=== PATIENT | female | born 1970 | race African-American/Black ===

== ENCOUNTER 2018-04-19 21:16 | Inpatient (IN) ==
--- NOTE | 2018-04-20 06:18 | ED ---
HPI General Chief Complaint: Psychiatric Symptoms Stated Complaint: Psych STEPHANIE sandhu Time Seen by Provider: 04/19/18 21:36 Source: patient, old records reviewed and police Mode of arrival: other Limitations: no limitations History of Present Illness HPI Narrative: Patient presents to our facility under an ex parte act by a hat blocking operator due to family being concerned of patient's well-being. Floor Mechanic ordered patient be admitted for psychiatric evaluation. Paperwork that is with the patient/police shows that patient has been acting strangely recently and thinking the LUCINDA is out to get her. Family states that patient has been overly paranoid and aggressive with them over the past few months. Patient has no history of any anxiety depression or mental health issues. Patient is a healthy 47-year-old lady who has no history of drug or alcohol abuse. Upon arrival to our facility patient is coherent and denies any such things. Patient is refusing any lab work saying that she does not need it. Patient states that she does not want any type of testing or medications she is wants to be seen by a psychiatrist that she can go home. Instructed patient that a psychiatrist is not here until the morning that we need blood work to medically clear the patient. Patient is fervently denying our request to obtain blood work. complaint: Reports altered mental status Onset (ago): month(s) Duration: resolved prior to arrival History of same: No Relieving factors: none Exacerbating factors: none Context: Denies recent alcohol abuse, recent drug abuse and not taking psychiatric medications Associated psychiatric symptoms: Reports none Associated symptoms: Denies confusion, headache, shortness of breath, nausea and vomiting Treatments prior to arrival: Reports placed on mental health hold Related Data Home Medications Medication Instructions Recorded Confirmed No Known Home Medications 04/19/18 04/19/18 Allergies Allergy/AdvReac Type Severity Reaction Status Date / Time No Known Allergies Allergy Verified 04/19/18 21:47 Review of Systems ROS: all other systems reviewed are negative [facility] Medical History Medical History Patient denies medical problems (Acute) Surgical history unknown (Acute) Social History Social History Substance History: No History of Abuse Second Hand Smoke Exposure: No Smoking Status: Never smoker How Often Do You Have a Drink Containing Alcohol: Never Recent Travel in [facility] within the Last 8 Weeks: No Recent Out of Country Travel within the Last 8 Weeks: No Immunization History Tetanus Immunization: Unsure Exam HENMT Head: normocephalic and atraumatic Nose: no nasal discharge and no epistaxis Mouth: moist mucous membranes Eyes Sclera: normal sclerae Pupils: PERRL Neck Neck: trachea midline and no JVD Resp Effort & Inspection: no use of accessory muscles Auscultation: clear to auscultation bilaterally Cardio Rate: regular rate Rhythm: regular rhythm Heart Sounds: no murmurs GI Inspection: non-distended Palpation: soft, no hepatosplenomegaly and nontender Skin General: dry skin (warm) Neuro General: alert and awake Cranial Nerves: other Speech: speech normal Motor: no movement abnormalities noted Extrem General: normal to inspection, no clubbing, no cyanosis and no edema Psych Mood: congruent mood Affect: normal affect Judgment: judgment good Course Initial Documented Vital Signs Temperature 98.4 F 04/19/18 21:35 Pulse Rate 119 H 04/19/18 21:35 Respiratory Rate 14 04/19/18 21:35 Blood Pressure 151/90 H 04/19/18 21:35 Pulse Oximetry 99 04/19/18 21:35 Last Documented Vital Signs Temperature 98.9 F 04/21/18 05:52 Pulse Rate 86 04/21/18 05:52 Respiratory Rate 17 04/21/18 05:52 Blood Pressure 139/76 04/21/18 05:52 Pulse Oximetry 96 04/21/18 05:52 Medical Decision Making MDM Narrative Medical decision making narrative: Patient presents to our facility under an ex parte act by a hat blocking operator due to family being concerned of patient's well-being. Floor Mechanic ordered patient be admitted for psychiatric evaluation. Paperwork that is with the patient/police shows that patient has been acting strangely recently and thinking the LUCINDA is out to get her. Family states that patient has been overly paranoid and aggressive with them over the past few months. Patient has no history of any anxiety depression or mental health issues. Patient is a healthy 47-year-old lady who has no history of drug or alcohol abuse. Upon arrival to our facility patient is coherent and denies any such things. Patient is refusing any lab work saying that she does not need it. Patient states that she does not want any type of testing or medications she is wants to be seen by a psychiatrist that she can go home. Instructed patient that a psychiatrist is not here until the morning that we need blood work to medically clear the patient. Patient is fervently denying our request to obtain blood work. Upon arrival patient's vital signs are within normal limits Patient has a temperature of 98.4, pulse rate is 87, blood pressure is 118/62 and pulse ox is 99 on room airc Physical exam is unremarkable. Patient has no signs of intoxication or altered mental status. Patient is alert awake alert and oriented. Patient is showing no signs of psychosis or elizabeth. Patient is not trying to harm herself or staff. Patient will not be both chemically and physically restrained just to obtain lab work. Awake psychiatric evaluation in the morning Medical Screen Exam Complete: Yes Emergency Medical Condition: Yes Lab Data Result diagrams: 04/20/18 09:24 04/20/18 09:24 Lab Results 04/20/18 04/20/18 04/20/18 Range/Units 09:24 09:24 Unknown WBC 10.2 (4.0-11.0) th/mm3 RBC 4.93 (4.00-5.30) mil/mm3 Hgb 14.6 (11.6-15.3) gm/dL Hct 41.9 (35.0-46.0) % MCV 85.1 (80.0-100.0) fL MCH 29.5 (27.0-34.0) pg MCHC 34.7 (32.0-36.0) % RDW 13.1 (11.6-17.2) % Plt Count 307 (150-450) th/mm3 MPV 8.4 (7.0-11.0) fL Neut % (Auto) 73.2 H (16.0-70.0) % Lymph % (Auto) 17.7 (9.0-44.0) % [place] % (Auto) 7.4 (0.0-8.0) % Eos % (Auto) 0.7 (0.0-4.0) % Baso % (Auto) 1.0 (0.0-2.0) % Neut # (Auto) 7.5 (1.8-7.7) th/mm3 Lymph # (Auto) 1.8 (1.0-4.8) th/mm3 [place] # (Auto) 0.8 (0.0-0.9) th/mm3 Eos # (Auto) 0.1 (0.0-0.4) th/mm3 Baso # (Auto) 0.1 (0.0-0.2) th/mm3 WBC Differential . Differential Comment Auto diff final Sodium 137 (136-145) meq/L Potassium 4.3 (3.5-5.1) meq/L Chloride 106 (98-107) meq/L Carbon Dioxide 25.3 (21.0-32.0) meq/L Anion Gap 6 (5-15) meq/L BUN 12 (7-18) mg/dL Creatinine 0.98 (0.50-1.00) mg/dL Estimated GFR 73 L (>89) mL/min Random Glucose 87 (74-106) mg/dL Calcium 9.0 (8.5-10.1) mg/dL Magnesium 2.2 (1.5-2.5) mg/dL Total Bilirubin 0.5 (0.2-1.0) mg/dL AST 16 (15-37) U/L ALT 17 (10-53) U/L Alkaline Phosphatase 100 (45-117) U/L Total Protein 8.3 H (6.4-8.2) g/dL Albumin 3.9 (3.4-5.0) g/dL TSH 1.580 (0.358-3.740) uIU/mL Urine Opiates Screen Neg (Neg) Ur Barbiturates Screen Neg (Neg) Ur Amphetamines Screen Neg (Neg) U Benzodiazepines Scrn Neg (Neg) Urine Cocaine Screen Neg (Neg) U Cannabinoids Screen Neg (Neg) Serum Alcohol Less than 3 (0-5) mg/dL Discharge Plan Discharge Disposition Patient Disposition: Sign Out(ED Internal Use Only) Discharge Condition Condition: Stable Discharge Order Discharge Orders: ED Use Only Admit Order (Routine); Ordered 04/20/18 Ordered By: Rohan Austin Discharge Details Diagnosis: Acute psychosis Physicians Team ED Provider: Aquilino Salazar ED Midlevel Provider: Mari Espinosa Primary Care Provider: UNKNOWN, Attending Provider: Jeff Monsalve Status ED Status: Left Department Discharge Information Discharge Date/Time: 04/20/18 11:13
[2018-04-20] MEDS ORDERED: Bisacodyl 10 MG Supp RECTAL PRN (08:18)
[2018-04-20] MEDS ORDERED: Aluminum/Magnesium/Simethacone Susp 30 ML UDC PO PRN (08:18)
[2018-04-20] MEDS ORDERED: Haloperidol Inj 5 MG/ML Ampul IV.PUSH PRN (08:18)
[2018-04-20] MEDS ORDERED: Haloperidol 5 MG Tablet PO STA (08:25)
[2018-04-20] MEDS: Senna/Docusate Sodium 8.6/50 MG Tablet PO SCH ×2 (09:53→20:46)
[2018-04-20 09:54] LABS: Baso # (Auto) 0.1 th/mm3 (0.0-0.2); Eos # (Auto) 0.1 th/mm3 (0.0-0.4); Eos % (Auto) 0.7 % (0.0-4.0); Hematocrit 41.9 % (35.0-46.0); Hemoglobin 14.6 gm/dL (11.6-15.3); Lymph # (Auto) 1.8 th/mm3 (1.0-4.8); Lymph % (Auto) 17.7 % (9.0-44.0); Mean Corpuscular HGB Conc 34.7 % (32.0-36.0); Mean Corpuscular Hemoglobin 29.5 pg (27.0-34.0); Mean Corpuscular Volume 85.1 fL (80.0-100.0); Mean Platelet Volume 8.4 fL (7.0-11.0); Mono # (Auto) 0.8 th/mm3 (0.0-0.9); Mono % (Auto) 7.4 % (0.0-8.0); Neut # (Auto) 7.5 th/mm3 (1.8-7.7); Neut % (Auto) 73.2 % (16.0-70.0); Platelet Count 307 th/mm3 (150-450); Red Blood Count 4.93 mil/mm3 (4.00-5.30); Red Cell Distribution Width 13.1 % (11.6-17.2); White Blood Count 10.2 th/mm3 (4.0-11.0)
[2018-04-20 10:16] LABS: Alanine Aminotransferase 17 U/L (10-53); Albumin 3.9 g/dL (3.4-5.0); Anion Gap 6 meq/L (5-15); Aspartate Aminotransferase 16 U/L (15-37); Blood Urea Nitrogen 12 mg/dL (7-18); Carbon Dioxide 25.3 meq/L (21.0-32.0); Chloride 106 meq/L (98-107); Glomerular Filtration Rate 73 mL/min (>89); Glucose,Random 87 mg/dL (74-106); Magnesium 2.2 mg/dL (1.5-2.5); Potassium 4.3 meq/L (3.5-5.1); Sodium 137 meq/L (136-145)
[2018-04-20 10:26] LABS: Alkaline Phosphatase 100 U/L (45-117); Total Protein 8.3 g/dL (6.4-8.2)
--- NOTE | 2018-04-20 10:59 | P.HPPSY ---
Provisional Diagnosis Admission Date: April 20, 2018 08:20 [place] I.: Unspecified psychosis [place] II.: Deferred [place] III.: Denies medical history Competence Certification of Person's Competence To Provide Express and Informed Consent I have personally examined Flaca Munoz, a person being served at [facility] on, April 20, 2018 1042. Express and informed consent means consent voluntarily given in writing, by a competent person, after sufficient explanation and disclosure of the subject matter involved to enable the person to make a knowing and willful decision without any element of force, fraud, deceit, duress, or other form of constraint or coercion. This person is 18 years of age or older, is not now known to be incompetent to consent to treatment with a guardian advocate, and does not have a health care surrogate or proxy currently making medical treatment decisions. I have found this person to be one of the following: [] Competent to provide express and informed consent, as defined above, for voluntary admission to this facility and is competent to provide express and informed consent for treatment. He/she has the consistent capacity to make well reasoned, willful, and knowing decisions concerning his or her medical or mental health treatment. The person fully and consistently understands the purpose of the admission for examination/placement and is fully capable of personally exercising all rights assured under [place] Incompetent to provide express and informed consent to voluntary admission, and this is incompetent to provide express and informed consent to treatment. The person must be transferred to involuntary status and a petition for a guardian advocate filed with the Circuit Court. [x] Refusing to provide express and informed consent to voluntary admission but is competent to provide express and informed consent for treatment. The person must be discharged or transferred to involuntary status. Form shall be completed within 24 hours of a person's arrival at the receiving facility and filed in the clinical record of each person: 1. Admitted on a voluntary basis 2. Permitted to provide express and informed consent to his/her own treatment 3. Allowed to transfer from involuntary to voluntary status 4. Prior to permitting a person to consent to his or her own treatment after having been previously found incompetent to consent to treatment. History of Present Illness Capacity: Has capacity History of Present Illness: The patient 47 year-old -[place] woman, domiciled in [place], single , unemployed at the moment, supported by unemployment benefits, she denies previous psychiatric of anxiety and depression, denies previous psychiatric hospitalizations, denies previous suicidal attempts, she denies medical history , who presents to our facility under an ex-parte act by a mannequin maker due to family being concerned of patient's well-being. Hatchery Helper ordered patient be admitted for psychiatric evaluation. Paperwork that is with the patient/police shows that patient has been acting strangely and erratically recently and thinking the LUCINDA is out to get her. Family states that patient has been overly paranoid and aggressive with them over the past few months. Patient has no history of any anxiety depression or mental health issues. In the ER the patient has been defiant, oppositional, has been refusing any lab work saying that she does not need it and she needs to go home. Patient states that she does not want any type of testing or medications she is wants to be seen by a psychiatrist that she can go home. On my psychiatric evaluation I find a patient that is hyper alert, guarded, quite oppositional initially. The patient says that she does not want to talk to me and she wants to be discharged now. She says that is illegal to have her here and she cannot understand how cannot sane person could be arrested by the police and obligated to come to hospital. Patient says that she is not going to give her blood I do not trust you, I do not know what I going to put inside of my. I was able to de-escalate the patient verbally and make her give me her social and medical history. Then, for several minutes I have a patient informed me that is quite logical, linear, no evidence of thought process disorder. She denies to be depressed, she says that she has been sad lately, because she is under unemployment, the benefits needs soon and she is no able to find a new job. She says that she was terminated in her last job back in January 2018 when she complained of harassment by some co-employed , but she refuses to give any detail about this. She denies suicidal and homicidal ideation, she denies visual and auditory hallucinations. Is fully oriented x3, no attention deficit, no fluctuation of consciousness. When I try to confront the allegations in the exported the patient becomes quite agitated stating that she prefers not to talk about this. When I tell to the patient that I meet her blood and urine in order to do an appropriate medical clearance , then she becomes quite agitated and verbally hostile stating that she is going to call her die repairer stamping and voices some profanities. PPHx: previous psychiatric of anxiety and depression, denies previous psychiatric hospitalizations, denies previous suicidal attempts. PMHx: No medical history. Substance Hx: Denies the use of alcohol, denies illegal drugs Family Hx: She denies family psychiatric Social Hx: Patient was born and raised in [facility], domiciled along in [place], single, she has a 28-year old son, unemployed at the moment, her highest level of education is high school - Inpatient Certification I certify that the inpatient services were ordered in accordance with Medicare regulations governing the order. This includes certification that hospital inpatient services are reasonable and necessary and in the case of services not specified as inpatient-only under 42 CFR 419.22(n), that they are appropriately provided as inpatient services in accordance to with the 2-midnight benchmark under 43 CFR 412.3(e) I certify that inpatient psychiatric hospital services are medically necessary. Evaluation and treatment and/or diagnostic testing are expected to improve the patient's condition. The patient needs on a daily basis, active treatment furnished directly by or requiring the supervision of inpatient psychiatric facility personnel. Estimated Total Length of Stay (Days): 7 Plans for Post Hospital Care: Home Review of Systems All other systems reviewed negative except as stated in HPI Psychiatric: Reports paranoia PMFSH - History History Provided By: Medical Record - Medical History Medical History: Medical History (Last Reviewed 04/20/18 @ 06:15 by Mari Espinosa) Patient denies medical problems Surgical history unknown - Tobacco History Second Hand Smoke Exposure: No Smoking Status: Never smoker - Alcohol History How Often Do You Have a Drink Containing Alcohol: Never - Substance Use History Substance History: No History of Abuse - Travel History Recent Travel in the [place] Within the Last 8 Weeks: No Recent Travel Out of the Country Within the Last 8 Weeks: No - Immunization History Tetanus Immunization: Unsure Medications and Allergies Active Medications: Active Medications Al Hydrox/Mg Hydrox/Simethicone (Mag-Al Plus Susp Liq) 30 ml PO Q6H PRN PRN Reason: DYSPEPSIA Al Hydroxide/Mg Hydroxide (Milk Of Magnesia Liq) 30 ml PO Q12H PRN PRN Reason: Mild Constipation Bisacodyl (Dulcolax Supp) 10 mg RECTAL DAILY PRN PRN Reason: SEVERE CONSITIPATION Flumazenil (Romazicon Inj) 0.2 mg IV.PUSH Q1M PRN PRN Reason: OVERSEDATION Haloperidol Lactate (Haldol Inj) 1 mg IV.PUSH Q15M PRN PRN Reason: for severe agitation Lactulose (Lactulose Liq) 30 ml PO DAILY PRN PRN Reason: SEVERE CONSITIPATION Lorazepam (Ativan) 2 mg PO Q2H PRN PRN Reason: for CIWA 11-14 Lorazepam (Ativan Inj) 2 mg IV.PUSH Q2H PRN PRN Reason: for CIWA 11-14 Lorazepam (Ativan Inj) 2 mg IV.PUSH Q15M PRN PRN Reason: for CIWA > 20 Lorazepam (Ativan Inj) 1 mg IV.PUSH Q4H PRN PRN Reason: for CIWA 8-10 Lorazepam (Ativan Inj) 2 mg IV.PUSH Q1H PRN PRN Reason: for CIWA 15-20 Senna/Docusate Sodium (Geovanna-Colace) 1 tab PO BID LYNDON Last Admin: 04/20/18 09:53 Dose: Not Given Sennosides (Senokot) 17.2 mg PO Q12H PRN PRN Reason: Moderate Constipation Allergies Allergy/AdvReac Type Severity Reaction Status Date / Time No Known Allergies Allergy Verified 04/19/18 21:47 Home Medications Medication Instructions Recorded Confirmed Type No Known Home Medications 04/19/18 04/19/18 History Results - Labs CBC & Chem 7: 04/20/18 09:24 04/20/18 09:24 Labs: Laboratory Results - last 24 hr 04/20/18 04/20/18 09:24 09:24 WBC 10.2 RBC 4.93 Hgb 14.6 Hct 41.9 MCV 85.1 MCH 29.5 MCHC 34.7 RDW 13.1 Plt Count 307 MPV 8.4 Neut % (Auto) 73.2 H Lymph % (Auto) 17.7 [place] % (Auto) 7.4 Eos % (Auto) 0.7 Baso % (Auto) 1.0 Neut # (Auto) 7.5 Lymph # (Auto) 1.8 [place] # (Auto) 0.8 Eos # (Auto) 0.1 Baso # (Auto) 0.1 WBC Differential . Differential Comment Auto diff final Sodium 137 Potassium 4.3 Chloride 106 Carbon Dioxide 25.3 Anion Gap 6 BUN 12 Creatinine 0.98 Estimated GFR 73 L Random Glucose 87 Calcium 9.0 Magnesium 2.2 Total Bilirubin 0.5 AST 16 ALT 17 Alkaline Phosphatase 100 Total Protein 8.3 H Albumin 3.9 TSH 1.580 Serum Alcohol Less than 3 Exam Vital signs: Vital Signs 04/19/18 21:35 04/20/18 04:21 04/20/18 10:21 Temperature 98.4 F Pulse Rate 119 H 87 92 H Respiratory Rate 14 18 18 Blood Pressure 151/90 H 118/62 137/81 Pulse Oximetry 99 99 Intake & Output 04/19/18 04/20/18 04/20/18 18:59 06:59 18:59 Weight 72.575 kg Narrative: Does not present any tremors, no withdrawal symptoms, no stiffness, no gait disturbance, no EPS - Constitutional moderate distress - Routine HEENT Exam Head: Present: normocephalic, atraumatic Eye: Present: EOMI, PERRL ENT: Present: mucous membranes moist Mental Status Examination Appearance: Appropriate Consciousness: Alert Orientation: x4 Motor Activity: Normal gait Speech: Unremarkable Language: Adequate Fund of Knowledge: Adequate Attention and Concentration: Adequate Memory: Unremarkable Mood: Appropriate Affect: Appropriate Thought Process & Associations: Intact Thought Content: Bizarre thinking Hallucination Type: None Delusion Type: Paranoid Suicidal Ideation: No Suicidal Plan: No Suicidal Intention: No Homicidal Ideation: No Homicidal Plan: No Homicidal Intention: No Insight: Poor Judgment: Poor Assessment and Plan - Assessment (1) Unspecified psychosis Code(s): F29 - Unspecified psychosis not due to a substance or known physiological condition Status: Acute - Plan Plan: On my psychiatric evaluation today the patient is irritable, oppositional, defiant, guarded and possibly internally preoccupied and paranoid. With redirection the patient is able to be somewhat cooperative, showing that she could be lineal and logical, without prominent thought process disorder, but once under stress the patient start making accusations to the staff and is stating that we want to put something inside her blood and for this reason she has been refusing to give blood and urine. As per information in the expected, the patient has being acting erratically, stating that the LUCINDA is following her , not taking care of herself, being aggressive with her son and brother. The patient reports a psychiatric history of anxiety and depression, but no previous psychiatric hospitalizations, no previous suicide attempts, she denies that use of drugs and alcohol, but toxicology has not be done. Given the allegations in the Ram at and her obvious paranoia the patient will be admitted in psychiatry for longitudinal observation and stabilization. The patient benefits of antipsychotic medications, I will start her on Abilify 5 mg. I will try to make her to sign consent Patient needs full medical clearance We will follow-up U tox Collateral information from her brother and son is still pending Support, motivation, psych education provided Transfer to 2600 unit, will consult psychiatry for second opinion lot worker intervention for psychosocial assessment, individual and group therapies, collateral information and to coordinate safe discharge Haldol 5 mg and Ativan 2 mg IM every 8 hours as needed severe agitation and aggressive behavior Justification for Continued Inpatient Stay: Patient is acutely psychotic, needs psychiatric admission for stabilization.
--- NOTE | 2018-04-20 14:21 | P.PNPSY ---
Subjective Remarks: Patient seen for second opinion. Patient was found lying in hospital bed noted to be cooperative but irritable and guarded. Patient initially brought in under today for psychiatric evaluation with concern of paranoid delusions, persecutory delusions and recent aggressive behavior with family and others. As per chart patient had refused care in the ER was oppositional but was able to engage in interview today. Patient states that she was dragged out of her home and was on aware why police had brought her involuntary to the hospital states she had not broken any laws. Patient also mentions about having showed up in the home as well being concerned for her well-being. She mentions her sleep has been "up and down" stating that at times she gets up at night checking the doors and windows. She reports having been terminated from her work of 24 years stating that she was "arrested pushed out". She mentions having problems with her neighbors and a person at work who have been harassing her and felt that the neighbor and this person at work were colluding together against her. He will she also felt that her paper products supervisor was also "in on it". She mentions that her malorie neighbor is constantly watching her, stalking her and that the neighbor has federal ties that her calls are being intercepted and she at times will be followed to just to the bank. Patient has poor insight into her current psychotic symptoms which has affected her level of function. Patient has capacity consent for treatment but at this time due to poor insight is refusing medications despite encouragement. Patient demanding to be discharged and explained the legal process of current involuntary hospitalization. Review of Systems All other systems reviewed negative except as stated in HPI Mental Status Examination Appearance: Appropriate Consciousness: Alert Orientation: x4 Motor Activity: Normal gait Speech: Unremarkable Language: Adequate Fund of Knowledge: Adequate Attention and Concentration: Adequate Memory: Unremarkable Mood: Appropriate Affect: Appropriate Thought Process & Associations: Intact Thought Content: Bizarre thinking Hallucination Type: None Delusion Type: Paranoid Suicidal Ideation: No Suicidal Plan: No Suicidal Intention: No Homicidal Ideation: No Homicidal Plan: No Homicidal Intention: No Insight: Poor Judgment: Poor Assessment and Plan - Assessment (1) Unspecified psychosis Code(s): F29 - Unspecified psychosis not due to a substance or known physiological condition Status: Acute - Plan Plan: I have seen and examined this patient, reviewed the documentation, and I agree and concur with Dr. Watson assessment and plan. I have completed second opinion for the petition for involuntary hospitalization. Patient at this time continues with paranoid and persecutory delusions regarding her neighbor and others at work. Patient has no insight into her current psychotic symptoms and delusions which has affected her level of function and has resulted in her losing her employee as well. Patient has capacity consent for treatment and is refusing any medication at this time will likely require court order treatment of her ejection to begin treatment. Consult appreciated. Justification for Continued Inpatient Stay: At risk of further decompensation at lower level care.
[2018-04-20 16:29] LABS: Amphetamine Screen,Urine Neg (Neg); Barbiturate Screen,Urine Neg (Neg); Cannabinoid Screen,Urine Neg (Neg); Cocaine Screen,Urine Neg (Neg)
[2018-04-20 16:35] LABS: Opiate Screen,Urine Neg (Neg)
[2018-04-21 08:50] LABS: Carbon Dioxide 25.7 meq/L (21.0-32.0); Potassium 3.7 meq/L (3.5-5.1)
[2018-04-21 08:54] LABS: Chol/HDL Ratio 4.25 Ratio
[2018-04-21] MEDS: Senna/Docusate Sodium 8.6/50 MG Tablet PO SCH ×2 (09:17→20:54)
--- NOTE | 2018-04-21 12:57 | P.PNPSY ---
Subjective Remarks: Patient was seen and case discussed with nursing. Patient continues to refuse her medications. She is irritable, angry, oppositional. She is reading her ex- partner today and trying to argue her way in an illogical manner out of the sequence of events that have occurred. She would not answer me if her house was bugged or not. She says her neighbor is in the mafia and her neighbor continues to collude against her Review of Systems All other systems reviewed negative except as stated in HPI Mental Status Examination Appearance: Appropriate Consciousness: Alert Orientation: x4 Motor Activity: Normal gait Speech: Unremarkable Language: Adequate Fund of Knowledge: Adequate Attention and Concentration: Adequate Memory: Unremarkable Mood: Appropriate Affect: Appropriate Thought Process & Associations: Intact Thought Content: Bizarre thinking Hallucination Type: None Delusion Type: Paranoid Suicidal Ideation: No Suicidal Plan: No Suicidal Intention: No Homicidal Ideation: No Homicidal Plan: No Homicidal Intention: No Insight: Poor Judgment: Poor Assessment and Plan - Assessment (1) Unspecified psychosis Code(s): F29 - Unspecified psychosis not due to a substance or known physiological condition Status: Acute - Plan Plan: Continue current treatment plan Justification for Continued Inpatient Stay: Patient would decompensate in a less restrictive setting
[2018-04-22] MEDS: Senna/Docusate Sodium 8.6/50 MG Tablet PO SCH ×2 (08:38→21:13)
--- NOTE | 2018-04-22 17:16 | P.PNPSY ---
Subjective Remarks: Reviewed electronic medical records and discussed case with staff. Follow-up was conducted in the patient's room with JAZZ Cosby present. The patient states that she feels okay and is ready to go home. She does state that she "slept a lot better last night". She reports her appetite as being normal. She presents extremely well until we start discussing what brought her here. She then goes on a tangent about her neighbor. She claims that her neighbors been constantly stocking and watching her and that he caused her to lose her employment. She goes on to say that she believes this neighbor sent a woman and to supervisors to stock her at her work which resulted in her losing her job. Her family arrived for visitation while I was with this patient and I was able to speak with them at length. They report that for some time now she has been isolating, not going to family dinners or special events which previously she would have attended. Her son relates that he became extremely concerned when he arrived home at her house around 3 or 4 in the morning and she had not slept. He says that she began talking about what she had seen on the television and reported to him that she believed there were "listening devices and bugs around her house". They also state that her aunt was staying with her for period of time and she to reported that the patient had moments when she did not make sense. Her father denies any previous familial history of mental illness. They deny any previous history on the patient's part of mental illness. Her father does state that she has always been extremely independent and a go-getter. The patient declined to visit with her family members reporting that she feels betrayed, angry, and disappointed as there is nothing wrong with her. She did request that the nurse passed on her love for them however. Mental Status Examination Appearance: Appropriate Consciousness: Alert Orientation: x4 Motor Activity: Normal gait Speech: Unremarkable Language: Adequate Fund of Knowledge: Adequate Attention and Concentration: Adequate Memory: Unremarkable Mood: Appropriate Affect: Appropriate Thought Process & Associations: Intact Thought Content: Bizarre thinking Hallucination Type: None Delusion Type: Paranoid Suicidal Ideation: No Suicidal Plan: No Suicidal Intention: No Homicidal Ideation: No Homicidal Plan: No Homicidal Intention: No Insight: Poor Judgment: Poor Assessment and Plan - Assessment (1) Unspecified psychosis Code(s): F29 - Unspecified psychosis not due to a substance or known physiological condition Status: Acute - Plan Plan: Patient will be reevaluated by the attending psychiatrist. Continue with current treatment plan. Justification for Continued Inpatient Stay: Moving this patient to a less restrictive environment would likely result in decompensation.
[2018-04-23] MEDS: Senna/Docusate Sodium 8.6/50 MG Tablet PO SCH ×2 (09:53→21:09)
--- NOTE | 2018-04-23 10:27 | P.PNPSY ---
Subjective Remarks: Patient seen for follow-up, chart reviewed. Discussion with nursing staff reported that patient was noted to be looking at the window all morning, refused breakfast today. Patient was found sitting speaking with counselor, states that she did not need to be here in the hospital to be discharged. Patient states that her family came to visit and was under the impression that her father was here to pick her up. Patient states she is sleeping well, reports no difficulty or appetite but this did not have an appetite this morning. Patient questioning why she continues to be here in the hospital not discharge him explained about concerns regarding her behavior as per family members she states that they do not know her well and that she is able to care for herself and does not need any mental health help. Went to spoken about her recent statements which she mentioned regarding her belief that her neighbor and coworkers were conspiring against her as well as her belief of having hypervigilance in her home she minimizes the paranoia stating that it is something that any person has a right to do. Patient appears to have a response to justify her recent actions. Patient continues to refuse treatment and has no insight into her recent paranoid delusions. Review of Systems All other systems reviewed negative except as stated in HPI Mental Status Examination Appearance: Appropriate Consciousness: Alert Orientation: x4 Motor Activity: Normal gait Speech: Unremarkable Language: Adequate Fund of Knowledge: Adequate Attention and Concentration: Adequate Memory: Unremarkable Mood: Appropriate Affect: Appropriate Thought Process & Associations: Intact Thought Content: Bizarre thinking, Delusional Hallucination Type: None Delusion Type: Paranoid Suicidal Ideation: No Suicidal Plan: No Suicidal Intention: No Homicidal Ideation: No Homicidal Plan: No Homicidal Intention: No Insight: Poor Judgment: Poor Assessment and Plan - Assessment (1) Unspecified psychosis Code(s): F29 - Unspecified psychosis not due to a substance or known physiological condition Status: Acute - Plan Plan: Patient this time continues with paranoid delusions regarding neighbor and others conspiring cancer. Patient appears to minimize her recent actions regarding her paranoid behavior and making justifications for her actions. Family members have endorsed continued concern of her recent paranoid behavior. Patient was explained process of involuntary hospitalization that she will present to mental health court on for attention and possibly treatment over objection if necessary. Patient continues with irritability and discharge focus. Justification for Continued Inpatient Stay: At risk of further decompensation at lower level care.
[2018-04-24] MEDS: Senna/Docusate Sodium 8.6/50 MG Tablet PO SCH ×2 (09:27→21:03)
--- NOTE | 2018-04-24 15:14 | P.PNPSY ---
Subjective Chief Complaint: Follow-up evaluation for paranoid delusions Remarks: Patient seen for follow-up, chart reviewed, patient discussed with nursing staff ; we reviewed the patient's mood, thoughts, and behaviors from overnight and this morning. Nursing reports that the patient is denying paranoid delusions today but remains guarded, hypervigilant, and not satisfied with explanations to her repeated questions about her care. Patient was during recreational therapy. Her behavior was appropriate. Patient was cooperative with interview but maintained guardedness and her affect appeared irritable. She denied that her paranoia was unfounded. She explained that it was a "exaggerated issue that started with a neighbor of mine 1 year ago People have been exaggerating it." Patient reports she feels safe to go home. Patient denies significant anxiety or depression and denies auditory or visual hallucinations and insists "I do not need any psychiatric treatment". Review of Systems Ears, Nose, Mouth, and Throat: Reports other (Chapped lips) Mental Status Examination Appearance: Appropriate Consciousness: Alert Orientation: x4 Motor Activity: Normal gait Speech: Unremarkable Language: Adequate Fund of Knowledge: Adequate Attention and Concentration: Adequate Memory: Unremarkable Mood: Irritable Affect: Irritable Thought Process & Associations: Intact Thought Content: Appropriate Hallucination Type: None Delusion Type: None, Paranoid Suicidal Ideation: No Suicidal Plan: No Suicidal Intention: No Homicidal Ideation: No Homicidal Plan: No Homicidal Intention: No Insight: Poor Judgment: Impulsive Assessment and Plan - Assessment (1) Unspecified psychosis Code(s): F29 - Unspecified psychosis not due to a substance or known physiological condition Status: Acute - Plan Plan: 04/23/2018: Patient this time continues with paranoid delusions regarding neighbor and others conspiring cancer. Patient appears to minimize her recent actions regarding her paranoid behavior and making justifications for her actions. Family members have endorsed continued concern of her recent paranoid behavior. Patient was explained process of involuntary hospitalization that she will present to mental health court on for attention and possibly treatment over objection if necessary. Patient continues with irritability and discharge focus. 04/24/2018: Fair response to treatment; the patient has been denying her paranoid delusions as of today. She remains guarded and somewhat seclusive from the milieu but otherwise appropriate with no signs of aggression towards self or others. She continues to decline offer for treatment of her paranoia and wants to be discharged home. Continue inpatient observation and stabilization of paranoid delusions. Anticipate [facility] act court for this . Justification for Continued Inpatient Stay: Patient remains an elevated risk for self-harm by self neglect and risk to others if she would act out on her paranoia and therefore will require further inpatient stabilization and preparation of a safe discharge plan. Moving patient to a less restrictive environment at this time may result in decompensation.
[2018-04-25] MEDS: Senna/Docusate Sodium 8.6/50 MG Tablet PO SCH ×2 (08:32→21:00)
--- NOTE | 2018-04-25 21:00 | P.PNPSY ---
Subjective Chief Complaint: Follow-up evaluation for paranoid delusions Remarks: Patient seen for follow-up, chart reviewed. Discussion with nursing staff reported that patient with no behavioral disturbances, continue to be mostly isolative when noted to be laughing inappropriately at times. Patient was found sitting in hospital chair in her room seen with nurse, cooperative with interview. Patient noted to have irritability still secondary to her not wanting to be discharged and being kept in the hospital involuntarily. Patient mentions having spoken to family members who it should explore today that led to her admission. She continues to have no insight into her recent symptoms and behavior regarding her paranoid ideation and delusions of neighbors and coworker against her. Discussion of patient with provisional diagnosis of unspecified psychosis was reviewed with patient patient visibly upset stating that she does not have a mental illness and she did not need treatment. Patient aware that she will present to mental health court tomorrow with the possibility of being retained under involuntary hospitalization if decided by compressor operator. Review of Systems All other systems reviewed negative except as stated in HPI Mental Status Examination Appearance: Appropriate Consciousness: Alert Orientation: x4 Motor Activity: Normal gait Speech: Unremarkable Language: Adequate Fund of Knowledge: Adequate Attention and Concentration: Adequate Memory: Unremarkable Mood: Irritable Affect: Irritable Thought Process & Associations: Intact Thought Content: Appropriate Hallucination Type: None Delusion Type: Paranoid Suicidal Ideation: No Suicidal Plan: No Suicidal Intention: No Homicidal Ideation: No Homicidal Plan: No Homicidal Intention: No Insight: Poor Judgment: Impulsive Assessment and Plan - Assessment (1) Unspecified psychosis Code(s): F29 - Unspecified psychosis not due to a substance or known physiological condition Status: Acute - Plan Plan: Patient continues to deny having any symptoms that would require her to be in a psychiatric facility. Attempt was made to address recent concerns of family members Of her paranoid and persecutory delusions which have interfered with her function and employ recently. Recommendation to have patient start antipsychotic to assist with these delusions was reviewed which patient refused to partake in any treatment believing that she does not have any symptoms requiring this. Patient presented to mental health court tomorrow for involuntary hospitalization. Continue to monitor mood and behavior. Discharge planning in progress. Justification for Continued Inpatient Stay: At risk of further decompensation at lower level care.
[2018-04-26 06:01] VITALS: BP 127/79; PULSE 98; RESP 18; TEMP 97.5; O2SAT 99
[2018-04-26] MEDS: Senna/Docusate Sodium 8.6/50 MG Tablet PO SCH (08:48)
--- NOTE | 2018-04-26 16:55 | P.DSPSY ---
Psychiatry Discharge Summary Inpatient Psychiatric care?: Yes Advance Directives: Unknown Reason for Unknown:: Due to Patient Condition Mental Health Advance Directive: No Health Care Proxy: No - Admission Admission Date: April 20, 2018 08:20 - Admission Diagnosis (1) Unspecified psychosis Code(s): F29 - Unspecified psychosis not due to a substance or known physiological condition Brief History: The patient 47 year-old -[place] woman, domiciled in [place], single , unemployed at the moment, supported by unemployment benefits, she denies previous psychiatric of anxiety and depression, denies previous psychiatric hospitalizations, denies previous suicidal attempts, she denies medical history , who presents to our facility under an ex-parte act by a chisel trimmer due to family being concerned of patient's well-being. [facility] Tank Tender ordered patient be admitted for psychiatric evaluation. Paperwork that is with the patient/police shows that patient has been acting strangely and erratically recently and thinking the LUCINDA is out to get her. Family states that patient has been overly paranoid and aggressive with them over the past few months. Patient has no history of any anxiety depression or mental health issues. In the ER the patient has been defiant, oppositional, has been refusing any lab work saying that she does not need it and she needs to go home. Patient states that she does not want any type of testing or medications she is wants to be seen by a psychiatrist that she can go home. On my psychiatric evaluation I find a patient that is hyper alert, guarded, quite oppositional initially. The patient says that she does not want to talk to me and she wants to be discharged now. She says that is illegal to have her here and she cannot understand how cannot sane person could be arrested by the police and obligated to come to hospital. Patient says that she is not going to give her blood I do not trust you, I do not know what I going to put inside of my. I was able to de-escalate the patient verbally and make her give me her social and medical history. Then, for several minutes I have a patient informed me that is quite logical, linear, no evidence of thought process disorder. She denies to be depressed, she says that she has been sad lately, because she is under unemployment, the benefits needs soon and she is no able to find a new job. She says that she was terminated in her last job back in January 2018 when she complained of harassment by some co-employed , but she refuses to give any detail about this. She denies suicidal and homicidal ideation, she denies visual and auditory hallucinations. Is fully oriented x3, no attention deficit, no fluctuation of consciousness. When I try to confront the allegations in the exported the patient becomes quite agitated stating that she prefers not to talk about this. When I tell to the patient that I meet her blood and urine in order to do an appropriate medical clearance , then she becomes quite agitated and verbally hostile stating that she is going to call her rn orthopedic and voices some profanities. PPHx: previous psychiatric of anxiety and depression, denies previous psychiatric hospitalizations, denies previous suicidal attempts. PMHx: No medical history. Substance Hx: Denies the use of alcohol, denies illegal drugs Family Hx: She denies family psychiatric Social Hx: Patient was born and raised in [facility], domiciled along in [place], single, she has a 28-year old son, unemployed at the moment, her highest level of education is high school Tobacco Use In Past 30 Days: No How Often Do You Have a Drink Containing Alcohol: Never Hospital Course: The patient 47 year-old -[place] woman, domiciled in [place], single , unemployed at the moment, supported by unemployment benefits, she denies previous psychiatric of anxiety and depression, denies previous psychiatric hospitalizations, denies previous suicidal attempts, she denies medical history , who presents to our facility under an ex-parte act by a chisel trimmer due to family being concerned of patient's well-being. Patient was admitted to a locked, inpatient psychiatric unit. Appropriate precautions were in place throughout patient's hospital stay. Patient was seen and examined on the unit by psychiatry. Psychotropic medications were not started as patient had decisional capacity and refused treatment. There was no evidence of any suicidality or homicidality on the inpatient unit. Patient continued with paranoid delusions, noted to be isolative but no behavioral disturbances. Recommendations were provided to patient bu continued to refuse. Patient was presented to mental health court and was discharged by the court despite recommendations that patient remain for treatment. Patient advised to return to psychiatric emergency room for any concerning psychiatric symptoms. - Discharge Discharge Date: 04/26/18 (To edmundo) - Discharge Diagnosis (1) Unspecified psychosis Code(s): F29 - Unspecified psychosis not due to a substance or known physiological condition Status: Acute Discharge Disposition: Home - Discharge Instructions Discharge Diet: Heart Healthy Diet Activities You Can Perform: Weight Bearing As Tolerat - Discharge Time > 30 minutes Mental Status Examination Appearance: Appropriate Consciousness: Alert Orientation: x4 Motor Activity: Normal gait Speech: Unremarkable Language: Adequate Fund of Knowledge: Adequate Attention and Concentration: Adequate Memory: Unremarkable Mood: Irritable Affect: Irritable Thought Process & Associations: Intact Thought Content: Appropriate Hallucination Type: None Delusion Type: Paranoid Suicidal Ideation: No Suicidal Plan: No Suicidal Intention: No Homicidal Ideation: No Homicidal Plan: No Homicidal Intention: No Insight: Poor Judgment: Impulsive Discharge/Advance Care Plan - Results Vital Signs: Last Vital Signs Temp 97.5 F L 04/26/18 05:59 Pulse 98 H 04/26/18 05:59 Resp 18 04/26/18 05:59 BP 127/79 04/26/18 05:59 Pulse Ox 99 04/26/18 05:59 Lab Results: Laboratory Results Hemoglobin A1c 5.0 % (4.3-6.0) 04/21/18 07:52 Triglycerides 67 mg/dL (42-150) 04/21/18 07:52 Cholesterol 200 mg/dL (120-200) 04/21/18 07:52 LDL Cholesterol, Calc 140 mg/dL (0-99) H 04/21/18 07:52 HDL Cholesterol 47.0 mg/dL (40.0-60.0) 04/21/18 07:52 TSH 1.580 uIU/mL (0.358-3.740) 04/20/18 09:24 Summary of Procedures: none Pending Results: None - Medications Number of antipsychotic medications at discharge: 0 - Discharge Care Plan Goals to Promote Your Health: * To prevent worsening of your condition and complications * To maintain your health at the optimal level Directions to Meet Your Goals: Take your medications as prescribed Follow your dietary instruction Follow activity as directed Keep your appointments as scheduled Take your immunizations and boosters as scheduled If your symptoms worsen call your PCP, if no PCP go to Urgent Care Center or Emergency Room For 07/11 questions related to your inpatient stay or results of tests pending at discharge, please contact Dr. Jeff Monsalve MD at Smoking is Dangerous to Your Health. Avoid second hand smoking
== END 2018-04-26 00:35 | disposition home or self-care (01) | DRG 885 ==
LOC: NEPJ 21:16 → NEDA 04-20 08:20 → H260 04-20 10:23
PROVIDERS: ADMIT Student in an Organized Health Care Education/Training Program; ATTEND Student in an Organized Health Care Education/Training Program
DX: F29 Unspecified psychosis not due to a substance or known physiological condition